=== PATIENT | female | born 1965 | race Caucasian/White ===

== ENCOUNTER → 2023-11-19 | Outpatient (CLI) | payer OTHER, SELFPAY | END | disposition home or self-care (01) | PROVIDERS: PCP Nurse Practitioner Family; Referring Provider Otolaryngology Otolaryngology/Facial Plastic Surgery; Visit Provider Otolaryngology Otolaryngology/Facial Plastic Surgery | DX: J32.8 Other chronic sinusitis (principal) | CPT/HCPCS: 87070; 87077; 87205 ==

== ENCOUNTER → 2023-12-03 | Outpatient (CLI) | payer OTHER, SELFPAY ==
--- NOTE | 2023-12-03 10:29 | CT_ITS ---
STUDY: CT MAXILLOFACIAL SINUSES REASON FOR EXAM: Female, 58 years old. Other chronic sinusitis RADIATION DOSAGE (If Supplied By Facility): CTDIvol = ( 33.06 ) mGy, DLP = ( 883.43 ) mGycm TECHNIQUE: The patient was scanned in a multi detector CT scanner. High resolution axial imaging was performed without the administration of intravenous contrast material. Sagittal and coronal images were reconstructed. Individualized dose optimization techniques were used for this CT. COMPARISON: None. FINDINGS: FRONTAL SINUSES: Opacification of the left frontal sinus. Mucosal thickening of the right frontal sinus. ETHMOIDAL SINUSES: Opacification of the ethmoid sinuses bilaterally. MAXILLARY SINUSES: Opacification of the maxillary sinuses bilaterally. SPHENOIDAL SINUSES: Normal aeration, without mucosal inflammatory disease. The ostiomeatal contact us or obstructed due to mucosal hypertrophy. Normal bilateral middle turbinates. Normal bilateral inferior turbinates. Normal midline nasal septum. The airways are compromised most likely secondary to polyposis is worse on the right side. The visualized osseous structures are normal. The visualized bilateral orbital contents are normal. CT/Sinus/Facial Bone IMPRESSION: Pansinusitis. The sphenoid sinus is clear. Findings suggestive of nasal polyposis. Electronically Signed: Evert Bowman MD at 11:18 EST ,
== END | disposition home or self-care (01) ==
PROVIDERS: PCP Nurse Practitioner Family; Referring Provider Otolaryngology Otolaryngology/Facial Plastic Surgery; Visit Provider Otolaryngology Otolaryngology/Facial Plastic Surgery
DX: J32.8 Other chronic sinusitis (principal); J32.2 Chronic ethmoidal sinusitis
CPT/HCPCS: 70486

== ENCOUNTER → 2024-11-04 | Outpatient (CLI) | payer OTHER, SELFPAY | END | disposition home or self-care (01) | LOC: LABSPEC 17:00 | PROVIDERS: PCP Nurse Practitioner Family; Referring Provider Otolaryngology Otolaryngology/Facial Plastic Surgery; Visit Provider Otolaryngology Otolaryngology/Facial Plastic Surgery | DX: J32.9 Chronic sinusitis, unspecified (principal) | CPT/HCPCS: 87070; 87077; 87186; 87205 ==

== ENCOUNTER → 2024-11-19 | Outpatient (CLI) | payer OTHER, SELFPAY | END | disposition home or self-care (01) | LOC: LABSPEC 15:24 | PROVIDERS: PCP Nurse Practitioner Family; Referring Provider Otolaryngology; Visit Provider Otolaryngology | DX: J01.90 Acute sinusitis, unspecified (principal) | CPT/HCPCS: 87070; 87077; 87205 ==